=== PATIENT | female | born 1930 | race Caucasian/White ===

== ENCOUNTER → 2016-09-25 | Outpatient (REF) | payer MEDICARE ==
[2016-09-25 13:10] LABS: BASOPHILS % (AUTO) 0 % (0-2); EOSINOPHILS # (AUTO) 0.1 10^3uL; EOSINOPHILS % (AUTO) 2 % (0-4); LYMPHOCYTES # (AUTO) 1.3 X10^3; MEAN CORPUSCULAR HEMOGLOBIN 28.5 PG (26.0-34.0); MEAN CORPUSCULAR HGB CONC 32.8 g/dL (31.0-37.0); MEAN CORPUSCULAR VOLUME 87 FL (80-100); MEAN PLATELET VOLUME 11.8 FL (6.0-9.5); MONOCYTES # (AUTO) 1.1 X10^3; MONOCYTES % (AUTO) 13 % (3-11); NEUTROPHILS # (AUTO) 5.8 X10^3; NEUTROPHILS % (AUTO) 70 % (51-67); PLATELET COUNT 234 10^3uL (150-450); WHITE BLOOD COUNT 8.32 10^3uL (4.0-11.0)
[2016-09-25 13:18] LABS: ANION GAP 15.4 MEQ/L (3-15); CALCULATED IONIZED CALCIUM 4.4 mg/dL (3.8-4.6); TOTAL PROTEIN 6.5 g/dL (6.4-8.5)
== END ==
LOC: LAB 10:13 → EDSTATUS 12:49
PROVIDERS: ATTEND Family Medicine
DX: E11.9 Type 2 diabetes mellitus without complications (principal); I10 Essential (primary) hypertension; E78.4 Other hyperlipidemia
CPT/HCPCS: 80053; 80061; 83036; 84443; 85025

== ENCOUNTER 2016-10-14 16:00 | Outpatient (RCR) | payer MEDICARE | END 2016-11-19 09:13 | disposition home or self-care (01) | LOC: PT 16:00 | PROVIDERS: ATTEND Family Medicine | DX: M51.36 Other intervertebral disc degeneration, lumbar region (principal) | CPT/HCPCS: 97035; 97110; 97140; 97161; G8981; G8982 ==

== ENCOUNTER 2016-10-17 09:41 | Emergency (ER) | payer MEDICARE ==
[~2016-10-17] VITALS: Ht 165.1 cm; Wt 117.0 kg
[2016-10-17] MEDS ORDERED: ALBUTEROL/IPRATROPIUM 3MG-0.5MG/3ML (DUONEB) NEB VIAL INH ONE (10:20)
[2016-10-17 10:38] LABS: MEAN CORPUSCULAR HEMOGLOBIN 29.3 PG (26.0-34.0); MEAN CORPUSCULAR HGB CONC 33.4 g/dL (31.0-37.0); MEAN CORPUSCULAR VOLUME 88 FL (80-100); MEAN PLATELET VOLUME 10.6 FL (6.0-9.5); PLATELET COUNT 203 10^3uL (150-450); WHITE BLOOD COUNT 7.62 10^3uL (4.0-11.0)
[2016-10-17 10:48] LABS: ALBUMIN 3.7 g/dL (3.4-5.0); ANION GAP 12.9 MEQ/L (3-15); CALCULATED IONIZED CALCIUM 4.1 mg/dL (3.8-4.6); TOTAL PROTEIN 6.5 g/dL (6.4-8.5)
[2016-10-17 10:51] LABS: INFLUENZA VIRUS TYPE A ANTIBOD Negative (NEGATIVE); INFLUENZA VIRUS TYPE B ANTIBOD Negative (NEGATIVE)
[2016-10-17 10:59] LABS: BAND NEUTROPHILS % 2 % (0-6); EOSINOPHILS % 0 % (0-4); MONOCYTES # 0.8 #; MONOCYTES % 11 % (3-11); RBC MORPH NORMAL (NORMAL); SEGMENTED NEUTROPHILS % 69 % (51-67); TOTAL CELLS COUNTED 100
[2016-10-17 12:12] VITALS: BP 119/44
== END 2016-10-17 12:11 | disposition home or self-care (01) ==
LOC: EDUNIT# 09:41 → ED 09:42
DX: J40 Bronchitis, not specified as acute or chronic (principal)
CPT/HCPCS: 36415; 71020; 80053; 85025; 86140; 87502; 94640; 99282; 99283

== ENCOUNTER → 2016-11-08 | Outpatient (REF) | payer MEDICARE ==
[2016-11-08 15:39] LABS: ANION GAP 12.6 MEQ/L (3-15)
== END ==
LOC: LAB 14:48
PROVIDERS: ATTEND Nurse Practitioner Family
DX: I50.22 Chronic systolic (congestive) heart failure (principal)
CPT/HCPCS: 80048

== ENCOUNTER → 2016-12-24 | Outpatient (REF) | payer MEDICARE ==
[~2016-12-24] MED LIST: ALBU2.5V4 IH; ALBU8.5H2 IH; ASPI-586 PO; ATOR20TA54 PO; AZIT250T81 PO; CRV6.25T PO; FLUT1DIS3 IH; FURO40TA4 PO; HYDR-3708 PO; ISM60TCR PO; LEVO25TA2 PO; LSRT50T PO; METF500T4 PO; MNTL10T PO; OMEG1CAP58 PO; PANT40TA3 PO; POTA10CA43 PO; PRCD5U PO; ROPI0.5T4 PO; TIOT18CA IH
[2016-12-24 12:47] LABS: ANION GAP 15.3 MEQ/L (3-15)
== END ==
LOC: LAB 12:19
PROVIDERS: ATTEND Family Medicine
DX: E11.9 Type 2 diabetes mellitus without complications (principal)
CPT/HCPCS: 80048; 83036